=== PATIENT | male | born 1960 | race Caucasian/White ===

== ENCOUNTER → 2020-04-21 19:22 | Outpatient (CLI) | payer OTHER, SELFPAY | PROVIDERS: Visit Provider Nurse Practitioner Family | DX: Z20.822 Contact with and (suspected) exposure to COVID-19 (principal) | CPT/HCPCS: U0003 ==

== ENCOUNTER → 2020-08-24 15:55 | Outpatient (CLI) | payer OTHER, SELFPAY | PROVIDERS: Visit Provider Internal Medicine Gastroenterology | DX: Z01.812 Encounter for preprocedural laboratory examination (principal); Z11.52 Encounter for screening for COVID-19; Z12.11 Encounter for screening for malignant neoplasm of colon | CPT/HCPCS: U0003 ==

== ENCOUNTER 2020-08-27 08:01 | Day surgery (SDC) | payer OTHER, SELFPAY ==
[2020-08-21 09:13] VITALS: BMI 22.2
[2020-08-27 08:18] VITALS: BP 160/76; PULSE 78; RESP 18; TEMP 36.8; O2SAT 96
--- NOTE | 2020-08-27 08:36 | P.PN_ITS ---
[facility] Anesthesia Checklist - Patient Identification Patient Identification: Arm Band - Structural Data Admitted From: Home Planned Operative Procedure/s: Colonoscopy Consent for Planned Operative Procedure(s) Verified: Yes - NPO Status Verified Time NPO: 00:00 - Airway Assessment C-Spine Mobility Assessed: Yes TMJ Mobility Assessed: Yes Dentition: Poor Dentition (Missing) - Neurological Assessment Level of Consciousness: Awake Hx Seizures: No Numbness or tingling in extremities: No - Anesthesia Plan Anesthesia Risk discussed: Yes Anesthesia Plan: Verified ASA Class: II Anesthesia Type: MAC [facility] History I have reviewed the patient's past medical history: Yes Medical History: Denies:: Cancer, Diabetes Mellitus Type 1, Diabetes Mellitus Type 2, Internal Pacemaker, MRSA, Seizures *Have you ever received a pneumonia vaccine?: No *Have you received a flu vaccine this season?: Yes Anesthesia experience/problems:: None Other Surgeries: No: Pacemaker Amputation: No Fractures: No - *Social History Last grade of school completed: High school graduate Smoking Status: Current every day smoker Tobacco Type: cigarettes # Packs/Day (cigarettes): 1 Alcohol Intake: never Substance Use Type: denies use *Occupational Status:: employed Housing: house Household Members: spouse *Travel in the last 8 weeks: None Family Hx:: Cancer, Coronary Artery Disease
--- NOTE | 2020-08-27 09:30 | P.PCN_ITS ---
[facility] Procedure Note Procedure Note:: Colonoscopy Procedure Report: Colonoscopy with cold snare polypectomy Endoscopist: Galileo Wong II, MD Referring physician: Loly ÁLVAREZ Date of Procedure: August 27, 2020 Equipment: Olympus 190 variable stiffness pediatric colonoscope Sedation: MAC sedation Indication: Mr. Carvalho is a 60-year-old gentleman who is here for high risk screening colonoscopy secondary to family history. He states that his older brother had colon cancer at the age of 55. The patient reports no abdominal pain, weight loss, change in his bowel habits or rectal bleeding. His last colonoscopy was 8 years ago and he believes polyps were removed. Procedure: Prior to the procedure, a history and physical exam was performed, and patient's medications and allergies were reviewed. The risks, benefits and alternatives of the sedation and procedure were discussed with the patient. All questions were answered and informed consent was obtained. The patient was brought to the procedure room. Patient identification and proposed procedure were verified by the physician and the nurse. The patient was placed in a left lateral decubitus position and the scope was passed under direct vision. Throughout the procedure, the patient's blood pressure, pulse, and oxygen saturations were monitored continuously. The colonoscopy was accomplished without difficulty. The patient tolerated the procedure well. Findings: On digital rectal examination there was normal rectal tone. There were no external hemorrhoids. The prostate was 2+, smooth, soft, symmetric without nodules. The colonoscope was introduced through the anal canal to the rectum and advanced to the cecum. The ileocecal valve and appendiceal orifice were identified. The scope was advanced a short distance into the ileum which appeared grossly normal. The scope was then withdrawn into the colon. The cecum, ascending and transverse colon and mucosa were grossly normal. There were scattered diverticuli throughout the descending and sigmoid colon (LEFT colon). There was a single 4 to 5 mm polyp in the sigmoid colon removed via cold snare polypectomy. The rectum itself was normal. Upon retroflexion within the rectum there were grade 1-2 internal hemorrhoids. The preparation was excellent throughout with [place] Preparation Score of 9. The cecal time was 11 minutes. Impression: 1. Diminutive sigmoid polyp 2. Left-sided diverticulosis 3. Grade 1-2 internal hemorrhoids Plan: The polyp will be examined histologically but is likely a hyperplastic polyp. Based upon his family history I would continue surveillance/preventive colonoscopy again in 5 years.. I would encourage fiber supplementation on a long-term daily maintenance basis.
[2020-08-27 09:33] VITALS: BP 92/55; PULSE 46; RESP 16; TEMP 36.5; O2SAT 97
[2020-08-27 09:43] VITALS: BP 117/72; PULSE 36; RESP 18; TEMP 36.5; O2SAT 97
[2020-08-27 09:53] VITALS: BP 121/67; PULSE 38; RESP 18; TEMP 36.5; O2SAT 100
[2020-08-27 10:03] VITALS: BP 122/72; PULSE 43; RESP 18; TEMP 36.5; O2SAT 98
[2020-08-27 10:28] VITALS: BP 127/76; PULSE 40; RESP 18; TEMP 36.5; O2SAT 98
== END 2020-08-27 10:28 | disposition home or self-care (01) ==
LOC: OUTP 08:03
PROVIDERS: PCP Nurse Practitioner Family; Visit Provider Internal Medicine Gastroenterology
PROC: 0DJD8ZZ Inspection of Lower Intestinal Tract, Via Natural or Artificial Opening Endoscopic (ICD-10-PCS; CPT 45378; principal; 2020-08-27 09:00)
DX: Z12.11 Encounter for screening for malignant neoplasm of colon (principal); Z80.0 Family history of malignant neoplasm of digestive organs; K63.5 Polyp of colon; K57.30 Diverticulosis of large intestine without perforation or abscess without bleeding; K64.0 First degree hemorrhoids
CPT/HCPCS: 45385

== ENCOUNTER 2021-01-24 06:09 | Observation (INO) | payer OTHER, SELFPAY ==
[2021-01-24] VITALS (15 sets, daily range): BP systolic 102–130; BP diastolic 57–78; PULSE 38–54; RESP 13–20; TEMP 36.6–36.8; O2SAT 97–99; BMI 21.2
--- NOTE | 2021-01-24 | IR_ITS ---
APPROVED REPORT Patient Location: [facility] Information Specialist: MED Deleon RT (R) PROCEDURES 1. Left heart catheterization 2. Selective coronary arteriography 3. Left ventriculography INDICATION 1. Unstable angina, 2. Abnormal EKG SCAI INDICATION Patient is a 61-year-old white male with risk factors for coronary disease presented with chest pain. Bradycardia. Abnormal EKG. Secondary to progressive symptoms referred directly for left heart catheterization Informed consent was obtained prior to the procedure. COMPLICATIONS NONE Estimated Blood Loss: LESS THAN 10 ML TECHNIQUE One percent lidocaine was used to anesthetize the right groin. The right femoral artery was accessed via the Seldinger technique. A 4-Occitan sheath was placed in the right femoral artery. The JL-4 and JR-4 catheter was also used to perform left heart catheterization left ventriculogram and selective coronary angiogram. At the end of the procedure the patient was transferred to the post-op holding area in stable condition for arterial sheath removal. ANGIOGRAPHIC RESULTS The left main artery Angiographically normal The left anterior descending artery Smooth 20 to 30% eccentric mid stenosis. Normal flow into the distal vessel The circumflex artery Angiographically normal The right coronary artery Large and dominant with mild luminal irregularities but no significant stenosis The SOLIS ventriculogram reveals Ejection fraction 60%. No wall motion abnormalities. No gradient on pullback of the catheter. No noted mitral insufficiency The left ventricular end-diastolic pressure 6 Right, retrograde femoral arteriogram performed. Sheath placed in the right common femoral artery. Secondary to this an Angio-Seal device was deployed without difficulty IMPRESSION 1. Mild diffuse coronary artery disease 2. Normal left ventricular systolic function 3. Normal left ventricular end-diastolic pressure 4. Successful placement of an Angio-Seal device in the right common femoral artery PLAN 1. Patient will continue with aggressive medical therapy. Mild diffuse disease. Left ventricular function normal. Will go home with an outpatient monitor for evaluation of bradycardia. No significant pauses while in the hospital and no heart rate below 40. Hemodynamically he has been stable. Follow-up in cardiology clinic in 1 to 2 weeks for further evaluation and treatment Electronically signed by : Tino Conteh MD 01/24/2021 15:48:03
--- NOTE | 2021-01-24 06:08 | ECG_ITS ---
APPROVED REPORT Exam: Resting ECG HR:51 bpm ECG Measurements Heart Rate 51 AXES IL 144 P 81 QRSd 94 QRS 21 QT 432 T 49 QTc 398 Conclusion Sinus bradycardia Otherwise normal ECG Electronically signed by : Valdemar Kuhn MD 01/24/2021 15:09:56
--- NOTE | 2021-01-24 06:17 | CA_ITS ---
APPROVED REPORT EXAM: Comprehensive 2D, Doppler, and color-flow Echocardiogram [place] Operator: Marisela Espinoza, RT(R) Ht: 5 ft 10 in Wt: 148lbs BSA: 1.84 BP: 124/82 mmHg Indications: CP, smoker, DM, family history of HD, marijuana usage 2D Dimensions Left Atrium 2.49 cm M: 3.0 - 4.0 LA Volume 18.70 mL LVOT 2.01 cm (M/F) 1.5-2.5 LA Volume Index 10.21 mL/m2 (M/F) 16-34 M-Mode Dimensions RVDd 1.61 cm (0.9-2.6) LA Diam 3.26 cm (1.9-4.0) LVDd 4.96 cm (3.5-5.7) Ao Diam 3.44 cm (2.0-3.7) LVDs 3.67 cm (3.5-5.7) IVSd 1.03 cm (0.6-1.1) PWd 0.75 cm (0.6-1.1) EF (Teich) 50.90% FS 26.00% EDV (Teich) 116.10 mL ESV (Teich) 57.00 mL LV Diastology E Decel Time 237.00 (160-240 msec) E/A Ratio 1.6 MED E' 12.40 (< 7 cm/sec) E'/MED E' Ratio 8.87 (>14) LAT E' 16.50 (<10 cm/sec) E/LAT E' Ratio 6.67 (>14) Aortic Valve LVOT Max 110.00 (70-110 cm/s) LVOT VTI 27.13 cm AoV Peak Yassine. 171.00 (50-130 cm/s) AO Peak GR. 11.70 mmHg AO Mean GR. 5.80 (<5 mmHg) AO VTI 39.67 (18-25 cm) RENY (VTI) 2.17 (2.5-4.5 cm2) Mitral Valve MV E Max Yassine. 110.00 (40-130 cm/s) MV A Velocity 70.00 (40-130 cm/s) E/A Ratio 1.57 MV Decel. Time 237.00 (160-240 ms) MV PHT 69.00 ms Tricuspid Valve TR P. Velocity 237.00 cm/s RAP Estimate 15.00 mmHg RVSP 37.50 mmHg Left Ventricle Left atrium is normal size, left ventricle is normal size, there is no concentric left ventricular hypertrophy, visually estimated ejection fraction 55% with no regional wall motion abnormality, diastolic parameters are within normal range. Right Ventricle Right atrium and right ventricle are normal size and contractility. Aortic Valve Aortic valve is minimally thickened and fibrosed, there is no aortic stenosis or aortic insufficiency. Mitral Valve Mitral valve is grossly normal, there is trace mitral regurgitation. Tricuspid Valve Tricuspid grossly normal, there is trace tricuspid regurgitation, calculated right ventricular systolic pressure 37 mmHg. Pulmonic Valve Pulmonic valve is poorly visualized. Great Vessels Aortic root is normal size. Inferior vena cava normal size with normal inspiratory collapse. Pericardium No significant pericardial effusion noted. Conclusion 1. Normal left ventricular size, preserved left ventricular systolic function, visually estimated ejection fraction 55% with no regional wall motion abnormality, diastolic parameters are within normal range. 2. Trace mitral and tricuspid regurgitation, calculated right ventricular systolic pressure 37 mmHg. 3. No significant pericardial effusion noted 4. Inferior vena cava is normal size with normal respiratory collapse. Electronically signed by : Calderon Warren MD 01/24/2021 14:01:44
--- NOTE | 2021-01-24 06:17 | XR_ITS ---
PROCEDURE INFORMATION: Exam: XR Chest Exam date and time: 01/24/2021 6:17 AM Age: 61 years old Clinical indication: Right-sided; Patient HX: Chest pain for a few months that increased this morning, smoker, no SX; Additional info: Cp TECHNIQUE: Imaging protocol: XR of the chest. Views: 2 views. COMPARISON: No prior studies were available at the time of this dictation. FINDINGS: Lungs: Unremarkable. No consolidation. Pleural spaces: Unremarkable. No pleural effusion. No pneumothorax. Heart/Mediastinum: Unremarkable. No cardiomegaly. Bones/joints: Mild thoracolumbar scoliosis. IMPRESSION: No acute findings.
[2021-01-24 06:25] LABS: Coronavirus 19, PCR Not Detected (NotDetected); Influenza A, PCR Not Detected (NotDetected); Influenza B, PCR Not Detected (NotDetected)
[2021-01-24 06:28] LABS: Basophils # 0.1 K/mm3 (0-0.2); Basophils % 0.9 % (0.1-2.0); Eosinophils # 0.2 K/mm3 (0.0-0.4); Eosinophils % 3.3 % (0.1-12.0); Hematocrit 49.3 % (42.0-52.0); Lymphocytes # 2.9 K/mm3 (0.7-4.5); Lymphocytes % 46.6 % (10-50); Mean Corpuscular HGB Conc 32.4 g/dL (31.8-35.4); Mean Corpuscular Volume 98.8 fl (80-94); Mean Platelet Volume 7.5 fl (7.4-10.4); Monocytes # 0.3 K/mm3 (0.1-1.0); Monocytes % 5.4 % (1.7-9.3); Neutrophils # 2.7 K/mm3 (1.8-7.8); Neutrophils % 43.8 % (37.0-80.0); Platelet Count 175 K/mm3 (142-424); Red Blood Count 4.99 M/mm3 (4.60-6.20); Red Cell Distribution Width 12.5 % (11.5-17.5); White Blood Count 6.2 K/mm3 (4.8-10.8)
[2021-01-24 06:29] LABS: Chloride 103 mmol/L (98-107)
[2021-01-24 06:30] LABS: Potassium 3.9 mmoL/L (3.5-5.1); Sodium 142 mmol/L (136-145)
[2021-01-24 06:32] LABS: Alanine Aminotransferase 19 U/L (12-78); Alkaline Phosphatase 83 U/L (38-126); Aspartate Amino Transferase 28 U/L (17-59); Bilirubin,Total 0.4 mg/dl (0.2-1.3); Blood Urea Nitrogen 13 mg/dl (9-20); Creatinine Clearance Estimated 73 mL/min (50-200); Estimated Glomerular Filt Rate 98 ml/min (>60); GFR (African American) 119 ML/MIN (>60)
[2021-01-24 06:33] LABS: Albumin Level 4.2 g/dl (3.5-5.0); Albumin/Globulin Ratio 1.7 (1.1-1.8); Anion Gap 9.9 mEq/L (5-15); Calcium 8.9 mg/dl (8.4-10.2); Carbon Dioxide 33 mmol/L (22.0-30.0); Cholesterol 168 mg/dl (140-200); Globulin 2.5 g/dL (1.3-3.2); Glucose 88 mg/dl (74-100); Magnesium 2.1 mg/dl (1.6-2.3); Total Protein,Serum 6.7 g/dl (6.3-8.2); Triglycerides 73 mg/dl (30-150); VLDL Cholesterol 15 mg/dL (0-40)
[2021-01-24 06:34] LABS: Chol/HDL Ratio 2.7 (1-3.5); HDL Cholesterol 62 mg/dl (40-60)
[2021-01-24 06:39] LABS: C-Reactive Protein 0.7 mg/L (0-4)
[2021-01-24 06:44] LABS: Direct LDL Cholesterol 73.82 mg/dL (100-129)
[2021-01-24 06:45] LABS: NT Pro Brain Natriuretic Pep. 30.8 pg/mL (0-125)
[2021-01-24 06:48] LABS: Troponin I < 0.01 ng/ml (0.00-0.034)
[2021-01-24 06:53] LABS: Erythrocyte Sedimentation Rate 1 mm/hr (0-20)
--- NOTE | 2021-01-24 07:08 | HMH.EDCP ---
ED Disposition Clinical Impression: Unstable angina pectoris Disposition: Admitted as Observation Condition on Discharge: Good - Critical Care Critical Care Time: No Attestation: On 01/24/21, the high probability of a clinically significant, sudden or life threatening deterioration of the following system(s) required my full and direct attention, intervention and personal management. The time I documented below is in addition to time spent performing reported procedures but includes the following listed in this critical care notation. Medical Decision Making - Medical Records Medical records reviewed: Yes: I reviewed the patient's medical records. - Adam Inquiry Pt receiving controlled substance: No Vital Signs: 01/24/21 06:09 01/24/21 06:31 Temperature 97.8 F Temperature Source Oral Pulse Rate 48 L Pulse Rate [Right] 54 L Respiratory Rate 16 13 Blood Pressure 127/73 Blood Pressure [Right Arm] 130/78 Blood Pressure Mean 91 Blood Pressure Mean [Right Arm] 95 Blood Pressure Source [Right Arm] Automatic Cuff 02 Sat by Pulse Oximetry 99 98 Oxygen Delivery Method Room Air Room Air - Lab Data Lab results reviewed: Yes: I reviewed the patient's lab results. Lab Results 01/24/21 06:10: SARS-CoV-2 (PCR) Not detected, Influenza A Untype (PCR) Not detected, Influenza Type B (PCR) Not detected 01/24/21 06:17: WBC 6.2, RBC 4.99, Hgb 16.0, Hct 49.3, MCV 98.8 H, MCH 32.0 H, MCHC 32.4, RDW 12.5, Plt Count 175, MPV 7.5, Neut % (Auto) 43.8, Lymph % (Auto) 46.6, [place] % (Auto) 5.4, Eos % (Auto) 3.3, Baso % (Auto) 0.9, Neut # (Auto) 2.7, Lymph # (Auto) 2.9, [place] # (Auto) 0.3, Eos # (Auto) 0.2, Baso # (Auto) 0.1, ESR 1 01/24/21 06:17: Sodium 142, Potassium 3.9, Chloride 103, Carbon Dioxide 33 H, Anion Gap 9.9, BUN 13, Creatinine 0.80, Estimated Creat Clear 73, Estimated GFR 98, Est GFR ( Amer) 119, Glucose 88, Calcium 8.9, Total Bilirubin 0.4, AST 28, ALT 19, Alkaline Phosphatase 83, Troponin I < 0.01, C-Reactive Protein 0.7, Total Protein 6.7, Albumin 4.2, Globulin 2.5, Albumin/Globulin Ratio 1.7 01/24/21 06:17: Magnesium 2.1, NT-Pro-B Natriuret Pep 30.8, Triglycerides 73, Cholesterol 168, LDL Cholesterol Direct 73.82 L, VLDL Cholesterol 15, HDL Cholesterol 62 H, Cholesterol/HDL Ratio 2.7 Result diagrams: 01/24/21 06:17 01/24/21 06:17 Orders (Tests/Meds): ED MEDICATIONS Generic Name Dose Route Start Last Admin Trade Name Freq PRN Reason Stop Dose Admin Sodium Chloride 1,000 mls @ 999 mls/hr 01/24/21 06:30 01/24/21 06:21 Sod Chlor 0.9% 1000ml Bag IV 01/24/21 07:30 999 mls/hr .Q1H1M JUANITO Administration Discontinued Medications Generic Name Dose Route Start Last Admin Trade Name Freq PRN Reason Stop Dose Admin Aspirin 324 mg 01/24/21 06:18 01/24/21 06:20 Aspirin 81mg Chewable Tablet PO 01/24/21 06:19 324 mg ONCE ONE Administration Nitroglycerin 1 gm 01/24/21 06:18 01/24/21 06:20 Nitroglycerin 1 Gm Ointment TD 01/24/21 06:19 1 gm ONCE ONE Administration ORDERS Category Date Time Status XR chest 2V Stat Exams 01/24/21 06:17 Taken C-Reactive Protein Stat Lab 01/24/21 06:17 Results Comprehensive Metabolic Panel Stat Lab 01/24/21 06:17 Results Procalcitonin Stat Lab 01/24/21 06:17 Results Troponin I Q3H Lab 01/24/21 09:30 Ordered Troponin I Q3H Lab 01/24/21 12:30 Ordered Troponin I Stat Lab 01/24/21 06:17 Results - ECG Data Tracing #1 Arrhythmias present: sinus patricia Ischemic changes: non-specific ST-T wave changes ECG compared to prior tracings: there are no prior tracings available for comparison - Physician Consults Physician Consulted: ezra Reason -: Cardiology Eval/Care Chest Pain HPI - General Chief Complaint: Chest Pain Stated Complaint: cp Time Seen by Provider: 01/24/21 06:15 Mode of Arrival: Family Vehicle Source of Information: Patient, Medical Record Limitations: No Limitations Description of Symptoms (R
--- NOTE | 2021-01-24 07:24 | HMH.PHAVTE ---
[facility] Pharmacy VTE Monitoring - Patient Demographics Admission date: 01/24/21 Report Date: 01/24/21 Time: 07:24 Allergies/Adverse Reactions: Patient Allergies No Known Allergies Allergy (Verified 01/23/21 16:11) Height: 1.78 m Weight: 67.132 kg Patient Problems: Current Active Problems Unstable angina pectoris (Acute) - VTE Risk Labs: VTE Related Lab Results Hgb 16.0 g/dL (14.1-18.0) 01/24/21 06:17 Hct 49.3 % (42.0-52.0) 01/24/21 06:17 Plt Count 175 K/mm3 (142-424) 01/24/21 06:17 BUN 13 mg/dl (9-20) 01/24/21 06:17 Creatinine 0.80 mg/dl (0.66-1.25) 01/24/21 06:17 Estimated Creat Clear 73 mL/min (50-200) 01/24/21 06:17 Clinical Trial Participant: No - Prophylaxis VTE Prophylaxis Ordered?: Yes Types of VTE Prophylaxis: TEDS Knee High
--- NOTE | 2021-01-24 07:34 | PC.NURSE ---
echo lab just left bedside
[2021-01-24 07:47] LABS: Procalcitonin 0.055 ng/mL (0.0-2.0)
--- NOTE | 2021-01-24 07:55 | PC.NURSE ---
Cardiology at bedside
--- NOTE | 2021-01-24 08:10 | HMH.CNCARD ---
History of Present Illness Consult date: 01/24/21 Requesting physician: Galdino Lord Consult reason: chest pain Chief complaint: unstable angina History of present illness: 61-year-old male presented to the ED with exertional chest pain. Patient states he has been having episodes of exertional chest pain, in which he describes as a gripping pain off and on for the past 2 to 3 months. Patient states he does notice it more when he is exercising. Patient states prior to arrival to the ED, patient was experiencing chest pain with rest. Patient states he was having more concerned that his chest pain was occurring at rest instead of with exertion. Patient denies any history of coronary artery disease. Patient states along with the chest pain, is accompanied by shortness of breath. Patient denies chest pain, tightness or pressure at this time. Patient denies shortness of breath. Patient does have Nitropaste on the left subclavian area. Patient denies palpitations or dizziness. Patient to be in sinus bradycardia with a heart rate of 47 to 51 bpm. Patient states he does have history of a low heart rate. States he has had a low heart rate since he was young. Patient denies cough or fevers. Patient denies any significant history of hypertension or hyperlipidemia. Patient states he takes no medications. Patient does have a history of tobacco abuse. Patient states he smokes 1 pack of cigarettes per day. Patient states he does smoke marijuana on a daily basis due to chronic back pain. Patient does states there is significant family history of coronary disease. Initial work-up was performed in the ED. EKG reveals sinus bradycardia otherwise normal with a heart rate of 51 bpm. Serial troponins have been drawn. Troponin x1 is noted as negative. Echocardiogram has been ordered. Preliminary echocardiogram reveals EF within normal with mild MR and TR noted. Waiting official echocardiogram results. Pending on the results of the echocardiogram, medication and treatment therapies may be recommended. Due to patient's exertional chest pain, recommend undergoing left heart catheterization to determine ischemic coronary artery disease. Discussed with patient the risk and benefits of undergoing left heart catheterization with right groin access. Patient verbalized understanding and is agreeable to procedure. Pending on the results of the left heart catheterization, medication and treatment therapies may be recommended. Advised patient to stop smoking. LDL was noted as 73. LDL goal<55. Will start patient on statin. Patient will be given 300 mg of Plavix p.o. 1 dose only prior to undergoing left heart catheterization today. Discussed plan of care with Dr. Conteh. Orders and recommendations were received from Dr. Conteh. Thank you for allowing cardiology to participate in the care of this patient. [facility] History I have reviewed the patient's past medical history: Yes Medical History: Denies:: Cancer, Diabetes Mellitus Type 1, Diabetes Mellitus Type 2, Internal Pacemaker, MRSA, Seizures *Have you ever received a pneumonia vaccine?: No *Have you received a flu vaccine this season?: No Other Surgeries: Yes: Appendectomy, Colonoscopy. No: Pacemaker Amputation: No Fractures: No - *Social History Last grade of school completed: High school graduate Smoking Status: Current every day smoker Tobacco Type: cigarettes # Packs/Day (cigarettes): 1 Alcohol Intake: current Alcohol Intake Frequency:: holidays/special occasions only Substance Use Type: marijuana Last Used Substance: days (ago) *Occupational Status:: employed Housing: house Household Members: spouse *Travel in the last 8 weeks: None Family Hx:: Cancer, Coronary Artery Disease Meds Home Medications Medication Instructions Recorded Confirmed Type No Known Home Medications 08/21/20 01/24/21 History Allergies Allergy/AdvReac Type Severity Reaction Status Date / Time No K
--- NOTE | 2021-01-24 09:32 | PC.NURSE ---
Spoke with pt stated that resting heart rate stays in the low 40's. July is calling cardiology about the situation.
--- NOTE | 2021-01-24 09:45 | PC.NURSE ---
Spoke with cardiology about pt heart rate dropping into the 30's but he was asymptomatic. She advised to removed the nitro paste from his chest. No other new orders at this time. Pt resting and in no distress.
[2021-01-24 09:51] LABS: Troponin I < 0.01 ng/ml (0.00-0.034)
--- NOTE | 2021-01-24 10:03 | PC.NURSE ---
Pt is sleeping confortably in bed. Will continue to monitor.
--- NOTE | 2021-01-24 11:24 | PC.NURSE ---
Pt is doing will. Helped go to restroom. Will continue to monitor.
--- NOTE | 2021-01-24 12:17 | PC.NURSE ---
Pt is sitting on side of bed reading paper. Stated that he did not need anything. Will continue to monitor.
--- NOTE | 2021-01-24 13:00 | PC.NURSE ---
Pt is sleeping in bed in supine position resting well. Will continue to monitor.
[2021-01-24 13:21] LABS: Troponin I < 0.01 ng/ml (0.00-0.034)
--- NOTE | 2021-01-24 17:00 | HMH.HPDC ---
General - General Admission date:: 01/24/21 Discharge date: 01/24/21 *Admission Date: 01/24/21 *Chief complaint: chest pain *History of present illness: 61-year-old male presented to the ED with exertional chest pain. Patient states he has been having episodes of exertional chest pain, in which he describes as a gripping pain off and on for the past 2 to 3 months. Patient states he does notice it more when he is exercising. Patient states prior to arrival to the ED, patient was experiencing chest pain with rest. Patient states he was having more concerned that his chest pain was occurring at rest instead of with exertion. Patient denies any history of coronary artery disease. Patient states along with the chest pain, is accompanied by shortness of breath. Patient denies chest pain, tightness or pressure at this time. Patient denies shortness of breath. Patient does have Nitropaste on the left subclavian area. Patient denies palpitations or dizziness. Patient to be in sinus bradycardia with a heart rate of 47 to 51 bpm. Patient states he does have history of a low heart rate. States he has had a low heart rate since he was young. Patient denies cough or fevers. Patient denies any significant history of hypertension or hyperlipidemia. Patient states he takes no medications. Patient does have a history of tobacco abuse. Patient states he smokes 1 pack of cigarettes per day. Patient states he does smoke marijuana on a daily basis due to chronic back pain. Patient does states there is significant family history of coronary disease. per cardiology [facility] History I have reviewed the patient's past medical history: Yes Medical History: Reports:: Arrhythmia Denies:: Cancer, Diabetes Mellitus Type 1, Diabetes Mellitus Type 2, Internal Pacemaker, MRSA, Seizures *Have you ever received a pneumonia vaccine?: No *Have you received a flu vaccine this season?: No Other Surgeries: Yes: Appendectomy, Colonoscopy. No: Pacemaker Amputation: No Fractures: No - *Social History Last grade of school completed: 11th or 12th Smoking Status: Current every day smoker Tobacco Type: cigarettes # Packs/Day (cigarettes): 1 Alcohol Intake: never Alcohol Intake Frequency:: holidays/special occasions only Substance Use Type: marijuana Last Used Substance: days (ago) *Occupational Status:: employed Housing: house Household Members: spouse *Travel in the last 8 weeks: None Family Hx:: Cancer, Coronary Artery Disease Review of Systems - Review of Systems Review of systems:: pertinent systems reviewed and negative unless documented below - Constitutional Denies body ache(s), Denies fatigue - Eyes Denies blurry vision - ENT Denies bleeding gums - *Cardiovascular Reports chest pain, Reports chest pain at rest, Reports chest pain with activity, Denies shortness of breath with activity - *Respiratory Denies chest congestion - *Gastrointestinal Denies abdominal pain - *Genitourinary Denies difficulty urinating - *Musculoskeletal Denies abnormal walking - Integumentary/Breasts Denies rash - *Neurologic Reports weakness, Denies abnormal hearing, Denies headache(s), Denies seizure-like activity - Psychiatric Denies anxiety - Endocrine Denies excessive sweating - Hematologic/Lymphatic Denies easy bruising - Allergic/Immunologic Denies GI upset with certain foods Exam Vital signs and Labs for Last 24 Hours: Temp Pulse Resp BP Pulse Ox 98 F 43 L 20 123/64 99 01/24/21 16:00 01/24/21 16:05 01/24/21 16:05 01/24/21 16:05 01/24/21 16:05 Laboratory Results - last 24 hr 01/24/21 06:10: SARS-CoV-2 (PCR) Not detected, Influenza A Untype (PCR) Not detected, Influenza Type B (PCR) Not detected 01/24/21 06:17: WBC 6.2, RBC 4.99, Hgb 16.0, Hct 49.3, MCV 98.8 H, MCH 32.0 H, MCHC 32.4, RDW 12.5, Plt Count 175, MPV 7.5, Neut % (Auto) 43.8, Lymph % (Auto) 46.6, [place] % (Auto) 5.4, Eos % (Auto) 3.3, Baso % (Auto) 0
--- NOTE | 2021-01-24 18:20 | PC.NURSE ---
Unable to place event monitor at this time. Spoke with regional retail sales manager, suggested 24hr holter monitor then return in 48 hrs for event monitor. Spoke with Reyna Bianchi and she agreed.
== END 2021-01-24 19:12 | disposition home or self-care (01) ==
LOC: ER 06:25 → 2ND 07:22
PROVIDERS: Internal Medicine Cardiovascular Disease; Admitting Provider Emergency Medicine; Emergency Provider Emergency Medicine; PCP Emergency Medicine; Visit Provider Emergency Medicine
DX: R07.89 Other chest pain (principal); I25.110 Atherosclerotic heart disease of native coronary artery with unstable angina pectoris; F17.210 Nicotine dependence, cigarettes, uncomplicated; Z20.822 Contact with and (suspected) exposure to COVID-19; E78.5 Hyperlipidemia, unspecified
CPT/HCPCS: 36415; 71046; 80053; 80061; 83735; 83880; 84145; 84484; 85025; 85651; 86140; 93005; 93225; 93226; 93306; 93458; 96365; 99152; 99284; C1725; C1760; C1769; C9803; G0378; J1644; Q9967; U0003; U0005

== ENCOUNTER → 2021-03-01 07:53 | Outpatient (CLI) | payer OTHER, SELFPAY ==
--- NOTE | 2021-03-01 07:53 | CT_ITS ---
PROCEDURE: CT LUNG SCREENING CLINICAL INDICATION: lung cancer screening COMPARISON: No exams were available for comparison TECHNIQUE: The exam was performed on a GE Light Speed [address] scanner using 2.90 mGy CTDI. A low dose helical CT CHEST was performed on a multi-detector scanner. All CT scans at the facility use one or more dose reduction, viz: automated exposure control, ma/kV adjustment per patient size (including targeted exams where dose is matched to indication, i.e. head), or iterative reconstruction technique. The LDCT was performed in a facility that meets the criteria for the screening program. Data regarding this exam was submitted to ACR which is an approved registry. The order for this exam indicates that it came as a result of a lung cancer screening counseling shard decision-making visit that included all the elements required of such a visit including smoking cessation. The radiologist interpreting this exam meets the CMS criteria for the LDCT lung cancer screening program. The exam is reported using the Lung-RADS classification scale and reported to the ACR registry. NOTE: This study was performed for the specific purposes of lung cancer screening and is not an alternative to diagnostic chest CT. RADIATION DOSE: CTDI vol(CT dose Index-volume) = 2.90mG DLP (Dose Length Product) = 114.11 mGcm FINDINGS: COPD with scattered areas of scarring. There is scattered small pulmonary nodules some of which are calcified. 6 mm noncalcified nodule right middle lobe. 6 mm noncalcified nodule right lower lobe anteriorly flat like in nature. 5 mm noncalcified nodule left lower lobe also flat like in nature. No highly suspicious nodules. There is mild tracheal bronchial dilatation. Mildly prominent axillary lymph nodes bilaterally. OTHER FINDINGS: Coronary artery calcifications and/or stents IMPRESSION: Lung-RADS Category 3 Probably Benign. Scattered probably benign-appearing nodules. Follow-up: [address] Chest . Dictated by: Ion Garcia MD 03/04/2021 09:33 Ion Garcia MD in [place] 03/04/2021 09:33
== END ==
PROVIDERS: PCP Emergency Medicine; Visit Provider Emergency Medicine
DX: Z87.891 Personal history of nicotine dependence (principal); Z12.2 Encounter for screening for malignant neoplasm of respiratory organs
CPT/HCPCS: 71271

== ENCOUNTER → 2021-08-02 16:29 | Outpatient (CLI) | payer OTHER, SELFPAY ==
[2021-08-02 13:45] LABS: Alanine Aminotransferase 31 U/L (12-78); Albumin Level 3.9 g/dl (3.5-5.0); Albumin/Globulin Ratio 1.8 (1.1-1.8); Alkaline Phosphatase 89 U/L (38-126); Anion Gap 8.8 mEq/L (5-15); Aspartate Amino Transferase 29 U/L (17-59); Bilirubin,Total 0.5 mg/dl (0.2-1.3); Blood Urea Nitrogen 15 mg/dl (9-20); Carbon Dioxide 29 mmol/L (22.0-30.0); Chloride 104 mmol/L (98-107); Chol/HDL Ratio 3.7 (1-3.5); Cholesterol 154 mg/dl (140-200); Estimated Glomerular Filt Rate 114 ml/min (>60); GFR (African American) 138 ML/MIN (>60); Globulin 2.2 g/dL (1.3-3.2); Glucose 147 mg/dl (74-100); HDL Cholesterol 42 mg/dl (40-60); Potassium 3.8 mmoL/L (3.5-5.1); Sodium 138 mmol/L (136-145); Total Protein,Serum 6.1 g/dl (6.3-8.2); Triglycerides 114 mg/dl (30-150); VLDL Cholesterol 23 mg/dL (0-40)
[2021-08-02 13:57] LABS: Direct LDL Cholesterol 86.67 mg/dL (100-129)
[2021-08-02 14:01] LABS: Free T4 (Free Thyroxine) 1.37 ng/dl (0.78-2.19)
[2021-08-02 14:02] LABS: Basophils # 0.1 K/mm3 (0-0.2); Basophils % 1.3 % (0.1-2.0); Eosinophils # 0.1 K/mm3 (0.0-0.4); Hematocrit 45.1 % (42.0-52.0); Hemoglobin 15.1 g/dL (14.1-18.0); Lymphocytes # 2.4 K/mm3 (0.7-4.5); Lymphocytes % 40.8 % (10-50); Mean Corpuscular HGB Conc 33.5 g/dL (31.8-35.4); Mean Corpuscular Hemoglobin 32.2 pg (27.0-31.2); Mean Corpuscular Volume 96.1 fl (80-94); Mean Platelet Volume 8.7 fl (7.4-10.4); Monocytes # 0.3 K/mm3 (0.1-1.0); Monocytes % 5.6 % (1.7-9.3); Neutrophils # 2.9 K/mm3 (1.8-7.8); Neutrophils % 50.2 % (37.0-80.0); Platelet Count 213 K/mm3 (142-424); Red Blood Count 4.69 M/mm3 (4.60-6.20); Red Cell Distribution Width 13.1 % (11.5-17.5); White Blood Count 5.8 K/mm3 (4.8-10.8)
[2021-08-02 14:03] LABS: 25-OH Vitamin D, Total 38.5 ng/mL (30-100)
[2021-08-02 14:17] LABS: Prostate Specific Ag Screen 0.8 ng/ml (0.0-4.0); Thyroid Stimulating Hormone 1.24 uIU/mL (0.465-4.68)
== END ==
PROVIDERS: Visit Provider Emergency Medicine
DX: I25.10 Atherosclerotic heart disease of native coronary artery without angina pectoris (principal); E55.9 Vitamin D deficiency, unspecified; Z12.5 Encounter for screening for malignant neoplasm of prostate
CPT/HCPCS: 80053; 80061; 82306; 84439; 84443; 85025; G0103

== ENCOUNTER → 2021-08-09 07:56 | Outpatient (CLI) | payer OTHER, SELFPAY ==
--- NOTE | 2021-08-09 07:56 | MR_ITS ---
FINAL REPORT CLINICAL HISTORY: CHRONIC LBP X'S YEARS. WORSE IN THE PAST COUPLE MONTHS. NKI. FINDINGS: Multiplanar MR imaging of the lumbar spine was performed without contrast. On the sagittal T2-weighted images, decreased signal is seen throughout. There is moderate loss of height at the L1-2 and L2-3 levels. Partial congenital fusion is seen at L2-3. The vertebral alignment is normal. There is no evidence of fracture. No bony mass is identified. The conus is seen at approximately the L1 level and has an unremarkable appearance. L1-2: There is no significant canal stenosis or neural foraminal narrowing. L2-3: There is no significant canal stenosis or neural foraminal narrowing. L3-4: Mild diffuse disc bulge with posterolateral disc protrusions and moderate, left greater than right bilateral neural foraminal narrowing. L4-5: Moderate disc bulge with endplate hypertrophy and moderate bilateral neural foraminal narrowing. L5-S1: There is no significant canal stenosis or neural foraminal narrowing. 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 Diffuse disc bulges at L3-4 and L4-5 with bilateral neural foraminal narrowing. No acute osseous abnormality. Reviewed, Interpreted and Dictated by Sherif Arango MD Transcribed by Candice Oscar Authenticated by Sherif Arango MD on 08/09/2021 01:24:37 PM [facility]
--- NOTE | 2021-08-09 08:04 | XR_ITS ---
FINAL REPORT CLINICAL HISTORY: RULE OUT METAL FOR MRI CLEARANCE FINDINGS: ORBITS Look up and look down views were obtained. No fracture is identified. The sinuses are clear. No foreign body is identified. IMPRESSION: No acute process. Reviewed, Interpreted and Dictated by Sherif Arango MD Transcribed by Rome Thorne Authenticated by Sherif Arango MD on 08/09/2021 09:18:04 AM [facility]
== END ==
PROVIDERS: PCP Emergency Medicine; Visit Provider Emergency Medicine
DX: M54.50 Low back pain, unspecified (principal); H05.53 Retained (old) foreign body following penetrating wound of bilateral orbits
CPT/HCPCS: 70200; 72148; 76376

== ENCOUNTER → 2021-08-09 08:08 | Outpatient (CLI) | payer OTHER, SELFPAY | PROVIDERS: PCP Emergency Medicine; Visit Provider Emergency Medicine | DX: H05.53 Retained (old) foreign body following penetrating wound of bilateral orbits (principal) ==

== ENCOUNTER → 2021-10-01 07:56 | Outpatient (CLI) | payer OTHER, SELFPAY ==
--- NOTE | 2021-10-01 07:57 | CT_ITS ---
FINAL REPORT TECHNIQUE: Axial images were obtained from the lung apex to the mid abdomen by computed tomography. Coronal reformatted images were obtained. This study was performed with techniques to keep radiation doses as low as reasonably achievable, (ALARA). Individualized dose reduction techniques using automated exposure control or adjustment of mA and/or kV according to the patient''s size were employed. CLINICAL HISTORY: lung nodule COMPARISON: March 01, 2021 FINDINGS: There are multiple borderline sized mediastinal and axillary lymph nodes. There is no hilar adenopathy. Heart size is normal. There is no pericardial or pleural effusion. Limited images of the upper abdomen are unremarkable. On the lung window images, there are mild changes of emphysema and mild pulmonary scarring. There is a right middle lobe nodule measuring 6 mm which is stable. There is a stable anterior right lower lobe nodule on image 55 measuring 6 mm. There is a stable 5 mm lateral left lower lobe nodule on image 68. There are several other less than 5 mm nodules which are stable. No new mass or nodule is identified. IMPRESSION: Stable pulmonary nodules. Recommend follow-up low-dose chest CT in 12 months. Reviewed, Interpreted and Dictated by John James III, MD Transcribed by Shira Waters Authenticated and [facility]
== END ==
PROVIDERS: PCP Emergency Medicine; Visit Provider Emergency Medicine
DX: R91.1 Solitary pulmonary nodule (principal)
CPT/HCPCS: 71250

== ENCOUNTER 2021-10-15 13:49 | Emergency (ER) | payer OTHER, SELFPAY ==
[2021-10-15 13:50] VITALS: BP 125/69; PULSE 58; RESP 15; TEMP 36.7; O2SAT 96; BMI 21.5
--- NOTE | 2021-10-15 13:56 | PC.NURSE ---
MD at bedside to assess lac
--- NOTE | 2021-10-15 14:15 | HMH.EDWNDL ---
ED Disposition Clinical Impression: Laceration of left ear Qualifiers: Encounter type: initial encounter Qualified Code(s): S01.312A - Laceration without foreign body of left ear, initial encounter Disposition: Home, Self-Care Condition on Discharge: Good Instructions: DI for Laceration Repair, DI for Laceration Repair-Skin Glue Additional Instructions: follow up ENT as needed, retuen here for any concerns Prescriptions: cephALEXin [cephALEXin 500mg capsule*] 500 mg PO QID #40 cap Transmission Status: Pending to [facility] Referrals: Galdino Lord MD [Primary Care Provider] - - Critical Care Critical Care Time: No Attestation: On 10/15/21, the high probability of a clinically significant, sudden or life threatening deterioration of the following system(s) required my full and direct attention, intervention and personal management. The time I documented below is in addition to time spent performing reported procedures but includes the following listed in this critical care notation. Medical Decision Making - Medical Records Medical records reviewed: Yes: I reviewed the patient's medical records. - Adam Inquiry Pt receiving controlled substance: No Vital Signs: 10/15/21 13:50 Temperature 98.1 F Temperature Source Oral Pulse Rate [Right Radial] 58 L Respiratory Rate 15 Blood Pressure [Right Arm] 125/69 Blood Pressure Mean [Right Arm] 87 Blood Pressure Source [Right Arm] Automatic Cuff Blood Pressure Position [Right Arm] Sitting 02 Sat by Pulse Oximetry 96 Oxygen Delivery Method Room Air Medical Decision Narrative: left ear lac 4cm irrig well, ns, hib, cleaned, dermabond/steristrip approximated well Wound/Laceration HPI - General Chief Complaint: Wound/Laceration Stated Complaint: ao 10/15, left ear laceration Time Seen by Provider: 10/15/21 14:16 Mode of Arrival: Ambulatory Limitations: No Limitations Description of Symptoms (Recalled from ER Triage Doc. by RN): Pt to ED with lac to lt ear. States that he had a piece of dorian metal fal onto it. 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 Medical History: Reports:: Arrhythmia Denies:: Cancer, Diabetes Mellitus Type 1, Diabetes Mellitus Type 2, Internal Pacemaker, MRSA, Seizures Other Surgeries: Yes: Appendectomy, Cardiac Catheterization, Colonoscopy. No: Pacemaker Amputation: No Fractures: No - Social History Smoking Status: Current every day smoker Tobacco Type: cigarettes # Packs/Day (cigarettes): 1 Alcohol Intake: never Alcohol Intake Frequency:: holidays/special occasions only Substance Use Type: marijuana Occupational Status: employed Housing: house Household Members: spouse Family Hx:: Cancer, Coronary Artery Disease ROS Obtained: Yes All systems reviewed & no additional complaints Physical Exam - General General appearance: alert, in no apparent distress - Head Head exam: atraumatic, normocephalic - Eye Eye exam: Present: normal appearance, PERRL, EOMI - ENT ENT exam: Present: normal oropharynx, mucous membranes moist, other (left ear lac approx 4cm into subq with cartilage exposed, clean edges approximated, nml canal and mastoid) - Neck Neck exam: Present: normal inspection, full ROM, trachea midline - Respiratory Respiratory exam: Prese
[2021-10-15 14:30] VITALS: BP 114/70; PULSE 62; RESP 18; TEMP 36.7
== END 2021-10-15 14:30 | disposition home or self-care (01) ==
PROVIDERS: Emergency Provider Emergency Medicine; PCP Emergency Medicine
DX: S01.312A Laceration without foreign body of left ear, initial encounter (principal); I49.9 Cardiac arrhythmia, unspecified; F17.210 Nicotine dependence, cigarettes, uncomplicated; Z79.82 Long term (current) use of aspirin; Z82.49 Family history of ischemic heart disease and other diseases of the circulatory system; Z79.1 Long term (current) use of non-steroidal anti-inflammatories (NSAID); Z88.8 Allergy status to other drugs, medicaments and biological substances; Z80.9 Family history of malignant neoplasm, unspecified; W45.8XXA Other foreign body or object entering through skin, initial encounter
CPT/HCPCS: 12013; 99283

== ENCOUNTER → 2022-03-12 08:27 | Outpatient (CLI) | payer OTHER, SELFPAY ==
--- NOTE | 2022-03-12 08:27 | CT_ITS ---
FINAL REPORT TECHNIQUE: Axial images were obtained from the lung apex to the mid abdomen by computed tomography. This study was performed with techniques to keep radiation doses as low as reasonably achievable (ALARA). Individualized dose reduction techniques using automated exposure control or adjustment of mA and/or kV according to the patient's size were employed. CLINICAL HISTORY: lung cancer screening COMPARISON: 03/01/2021 and 10/01/2021 FINDINGS: CHEST CT LOW DOSE CTDI vol (mGy): 2.90 DLP (mGy-cm): 114.11 There is a small amount of presumed mucus in the posterior trachea. There are several borderline sized axillary nodes which are stable. There is no hilar or mediastinal adenopathy. The heart is normal in size. There is no pericardial or pleural effusion. There is mild emphysema and mild scarring. There is a right middle lobe nodule measuring 6 mm, previously measured 6 mm on exam dated 02/2021. There is of lateral left lower lobe nodule measuring 4 mm, previously measured 4 mm. There is a stable, 2 mm nodule in the lateral right lower lobe. There is a 5 mm anterior right lower lobe nodule, stable. Several other small nodules appear stable. No new mass or nodule is identified. Limited images of the upper abdomen are unremarkable. IMPRESSION: Stable nodules as detailed above. Lung RADS category 2. Recommend 12 month follow-up low-dose chest CT. Reviewed, Interpreted and Dictated by John James III, MD Transcribed by Sveta Castaneda Authenticated and [facility]
== END ==
PROVIDERS: PCP Emergency Medicine; Visit Provider Emergency Medicine
DX: Z87.891 Personal history of nicotine dependence (principal); Z12.2 Encounter for screening for malignant neoplasm of respiratory organs
CPT/HCPCS: 71271

== ENCOUNTER → 2022-04-09 14:44 | Outpatient (CLI) | payer OTHER, SELFPAY ==
[2022-04-09 16:48] LABS: Barbiturates Screen,Urine Positive ng/ml (<200)
[2022-04-09 16:50] LABS: Amphetamine/Metha Screen,Urine Negative ng/ml (<1000); Benzodiazepines Screen,Urine Negative ng/ml (<200)
[2022-04-09 16:51] LABS: Cannabinoid Screen,Urine Positive ng/ml (<50); Cocaine Screen,Urine Negative ng/ml (<300)
[2022-04-09 16:53] LABS: Methadone Screen,Urine Negative ng/ml (<300)
[2022-04-09 16:54] LABS: Opiate Screen,Urine Positive ng/ml (<300); Phencyclidine Screen,Urine Negative ng/ml (<25)
== END ==
PROVIDERS: PCP Emergency Medicine; Visit Provider Emergency Medicine
DX: Z79.899 Other long term (current) drug therapy (principal)
CPT/HCPCS: 80305

== ENCOUNTER → 2022-07-30 01:10 | Outpatient (CLI) | payer OTHER, SELFPAY ==
[2022-07-30 14:52] LABS: Amphetamine/Metha Screen,Urine Negative ng/ml (<1000)
[2022-07-30 14:53] LABS: Barbiturates Screen,Urine Negative ng/ml (<200); Benzodiazepines Screen,Urine Negative ng/ml (<200)
[2022-07-30 14:54] LABS: Cannabinoid Screen,Urine Positive ng/ml (<50)
[2022-07-30 14:55] LABS: Cocaine Screen,Urine Negative ng/ml (<300); Methadone Screen,Urine Negative ng/ml (<300)
[2022-07-30 14:56] LABS: Opiate Screen,Urine Positive ng/ml (<300)
[2022-07-30 14:58] LABS: Phencyclidine Screen,Urine Negative ng/ml (<25)
== END ==
PROVIDERS: PCP Emergency Medicine; Visit Provider Emergency Medicine
DX: M48.061 Spinal stenosis, lumbar region without neurogenic claudication (principal)
CPT/HCPCS: 80305

== ENCOUNTER → 2022-07-30 14:32 | Outpatient (CLI) | payer OTHER, SELFPAY | PROVIDERS: PCP Emergency Medicine; Visit Provider Emergency Medicine | DX: M48.061 Spinal stenosis, lumbar region without neurogenic claudication (principal) ==

== ENCOUNTER → 2022-09-30 14:12 | Outpatient (CLI) | payer OTHER, SELFPAY ==
[2022-09-30 12:35] LABS: Basophils % 0.4 % (0.1-2.0); Eosinophils # 0.1 K/mm3 (0.0-0.4); Hematocrit 49.5 % (42.0-52.0); Hemoglobin 15.9 g/dL (14.1-18.0); Lymphocytes # 2.9 K/mm3 (0.7-4.5); Lymphocytes % 45.2 % (10-50); Mean Corpuscular HGB Conc 32.1 g/dL (31.8-35.4); Mean Corpuscular Hemoglobin 30.8 pg (27.0-31.2); Mean Corpuscular Volume 95.7 fl (80-94); Mean Platelet Volume 8.6 fl (7.4-10.4); Monocytes # 0.3 K/mm3 (0.1-1.0); Monocytes % 5.3 % (1.7-9.3); Neutrophils # 3.1 K/mm3 (1.8-7.8); Neutrophils % 47.2 % (37.0-80.0); Platelet Count 158 K/mm3 (142-424); Red Blood Count 5.17 M/mm3 (4.60-6.20); Red Cell Distribution Width 12.9 % (11.5-17.5); White Blood Count 6.5 K/mm3 (4.8-10.8)
[2022-09-30 12:45] LABS: Alanine Aminotransferase 20 U/L (12-78); Albumin Level 4.3 g/dl (3.5-5.0); Albumin/Globulin Ratio 1.7 (1.1-1.8); Alkaline Phosphatase 87 U/L (38-126); Anion Gap 14.2 mEq/L (5-15); Aspartate Amino Transferase 31 U/L (17-59); Bilirubin,Total 0.6 mg/dl (0.2-1.3); Blood Urea Nitrogen 15 mg/dl (9-20); Carbon Dioxide 29 mmol/L (22.0-30.0); Chloride 101 mmol/L (98-107); Chol/HDL Ratio 2.7 (1-3.5); Cholesterol 177 mg/dl (140-200); Estimated Glomerular Filt Rate 98 ml/min (>60); GFR (African American) 118 ML/MIN (>60); Globulin 2.5 g/dL (1.3-3.2); Glucose 99 mg/dl (74-100); HDL Cholesterol 66 mg/dl (40-60); Potassium 4.2 mmoL/L (3.5-5.1); Sodium 140 mmol/L (136-145); Total Protein,Serum 6.8 g/dl (6.3-8.2); Triglycerides 79 mg/dl (30-150); VLDL Cholesterol 16 mg/dL (0-40)
[2022-09-30 12:56] LABS: Direct LDL Cholesterol 92.81 mg/dL (100-129)
[2022-09-30 12:58] LABS: 25-OH Vitamin D, Total 35.4 ng/mL (30-100)
[2022-09-30 13:13] LABS: Thyroid Stimulating Hormone 1.32 uIU/mL (0.465-4.68)
[2022-09-30 13:41] LABS: Barbiturates Screen,Urine Negative ng/ml (<200)
[2022-09-30 13:42] LABS: Amphetamine/Metha Screen,Urine Negative ng/ml (<1000)
[2022-09-30 13:43] LABS: Benzodiazepines Screen,Urine Negative ng/ml (<200); Cannabinoid Screen,Urine Positive ng/ml (<50)
[2022-09-30 13:44] LABS: Cocaine Screen,Urine Negative ng/ml (<300)
[2022-09-30 13:45] LABS: Methadone Screen,Urine Negative ng/ml (<300); Opiate Screen,Urine Positive ng/ml (<300)
[2022-09-30 13:46] LABS: Phencyclidine Screen,Urine Negative ng/ml (<25)
== END ==
PROVIDERS: PCP Emergency Medicine; Visit Provider Emergency Medicine
DX: M48.061 Spinal stenosis, lumbar region without neurogenic claudication (principal); E78.5 Hyperlipidemia, unspecified; I25.10 Atherosclerotic heart disease of native coronary artery without angina pectoris; Z79.899 Other long term (current) drug therapy
CPT/HCPCS: 80053; 80061; 80305; 82306; 84436; 84443; 85025; G0103

== ENCOUNTER → 2022-11-26 23:23 | Outpatient (CLI) | payer OTHER, SELFPAY ==
[2022-11-27 03:54] LABS: Amphetamine/Metha Screen,Urine Negative ng/ml (<1000)
[2022-11-27 03:55] LABS: Barbiturates Screen,Urine Negative ng/ml (<200); Benzodiazepines Screen,Urine Negative ng/ml (<200)
[2022-11-27 03:56] LABS: Cannabinoid Screen,Urine Positive ng/ml (<50)
[2022-11-27 03:57] LABS: Cocaine Screen,Urine Negative ng/ml (<300)
[2022-11-27 03:58] LABS: Methadone Screen,Urine Negative ng/ml (<300); Opiate Screen,Urine Positive ng/ml (<300)
[2022-11-27 03:59] LABS: Phencyclidine Screen,Urine Negative ng/ml (<25)
== END ==
PROVIDERS: PCP Emergency Medicine; Visit Provider Emergency Medicine
DX: Z79.899 Other long term (current) drug therapy (principal)
CPT/HCPCS: 80305

== ENCOUNTER → 2022-11-28 07:35 | Outpatient (CLI) | payer OTHER, SELFPAY ==
--- NOTE | 2022-11-28 07:36 | MR_ITS ---
FINAL REPORT CLINICAL HISTORY: persistent right knee pain. pain when bending. medial sided knee pain COMPARISON: None FINDINGS: Multi planar MR imaging was performed of the right knee. The anterior and posterior cruciate ligaments are intact. The quadriceps and patellar tendons are intact. There is heterogeneous signal in the posterior horn of the medial meniscus consistent with intrasubstance degeneration. The medial and lateral collateral ligaments appear intact. The medial and lateral retinacula appear intact. There is no evidence of bone marrow edema or osteochondral defect. There is trace fluid in the joint. There is grade I chondromalacia along the undersurface of the patella. No evidence of soft tissue inflammatory reaction. IMPRESSION: Intrasubstance degeneration. Posterior horn medial meniscus. 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
== END ==
PROVIDERS: PCP Emergency Medicine; Visit Provider Emergency Medicine
DX: M25.561 Pain in right knee (principal); S89.91XA Unspecified injury of right lower leg, initial encounter
CPT/HCPCS: 73721

== ENCOUNTER → 2022-12-10 15:23 | Outpatient (CLI) | payer OTHER, SELFPAY ==
--- NOTE | 2022-12-10 15:26 | XR_ITS ---
FINAL REPORT CLINICAL HISTORY: Right knee pain COMPARISON: None FINDINGS: Three views of the right knee reveal no evidence of fracture or dislocation. The bony alignment is normal. The joint spaces are preserved. There is no evidence of joint effusion. No localized soft tissue abnormality is identified. IMPRESSION: No acute abnormality identified. Reviewed, Interpreted and Dictated by John James III, MD Transcribed by Renee Ray Authenticated and [facility]
== END ==
PROVIDERS: PCP Emergency Medicine; Visit Provider Orthopaedic Surgery
DX: M79.661 Pain in right lower leg (principal); S89.91XA Unspecified injury of right lower leg, initial encounter
CPT/HCPCS: 73562

== ENCOUNTER → 2023-01-26 08:55 | Outpatient (CLI) | payer OTHER, SELFPAY ==
[2023-01-26 21:37] LABS: Amphetamine/Metha Screen,Urine Negative ng/ml (<1000); Barbiturates Screen,Urine Negative ng/ml (<200)
[2023-01-26 21:38] LABS: Benzodiazepines Screen,Urine Negative ng/ml (<200)
[2023-01-26 21:39] LABS: Cannabinoid Screen,Urine Positive ng/ml (<50); Cocaine Screen,Urine Negative ng/ml (<300)
[2023-01-26 21:40] LABS: Methadone Screen,Urine Negative ng/ml (<300); Opiate Screen,Urine Positive ng/ml (<300)
[2023-01-26 21:41] LABS: Phencyclidine Screen,Urine Negative ng/ml (<25)
== END ==
PROVIDERS: PCP Emergency Medicine; Visit Provider Emergency Medicine
DX: M22.41 Chondromalacia patellae, right knee (principal)
CPT/HCPCS: 80305

== ENCOUNTER → 2023-03-24 11:56 | Outpatient (CLI) | payer OTHER, SELFPAY ==
[2023-03-24 13:05] LABS: Barbiturates Screen,Urine Negative ng/ml (<200)
[2023-03-24 13:06] LABS: Amphetamine/Metha Screen,Urine Negative ng/ml (<1000); Benzodiazepines Screen,Urine Negative ng/ml (<200)
[2023-03-24 13:07] LABS: Cocaine Screen,Urine Negative ng/ml (<300); Methadone Screen,Urine Negative ng/ml (<300)
[2023-03-24 13:08] LABS: Cannabinoid Screen,Urine Positive ng/ml (<50)
[2023-03-24 13:09] LABS: Phencyclidine Screen,Urine Negative ng/ml (<25)
[2023-03-24 13:10] LABS: Opiate Screen,Urine Positive ng/ml (<300)
== END ==
PROVIDERS: PCP Internal Medicine; Visit Provider Internal Medicine
DX: M22.41 Chondromalacia patellae, right knee (principal); Z79.899 Other long term (current) drug therapy
CPT/HCPCS: 80305